=== PATIENT | female | born 1970 | race American Indian/Alaskan Native ===

== ENCOUNTER 2018-05-02 10:19 | Outpatient (CLI) | payer BC ==
--- NOTE | 2018-05-02 13:54 | Mammography Report ---
Bilateral mammogram: Compared to 12/06/13. CAD study utilized. Findings: Heterogeneous breast parenchyma bilaterally. Focal lobulated asymmetry is noted at outer anterior left breast. Adjacent focal 3 mm density is noted. No microcalcifications. Normal axilla. Impression: Focal asymmetry outer anterior left breast. Recommend spot compression and if necessary sonographic examination. BI-RADS CATEGORY: 0 = Needs additional imaging evaluation ACR BI-RADS MAMMOGRAPHIC CODES: 0 = Needs additional imaging evaluation; 1 = Negative; 2 = Benign; 3 = Probably benign; 4 = Suspicious; 5 = Malignant; 6 = Known biopsy-proven malignancy COMMENT: 1. Dense breast tissue, i.e., adenosis, fibrocystic changes, etc., may obscure an underlying neoplasm. 2. Approximately 10% of cancers are not detected with mammography. 3. A negative mammography report should not delay biopsy if a clinically suspicious mass is present. COMMENT: Patient follow-up letters are generated in [employer].
== END 2018-05-02 10:20 | disposition home or self-care (01) ==
LOC: MAMMO 10:19
PROVIDERS: ATTEND Internal Medicine
DX: Z12.31 Encounter for screening mammogram for malignant neoplasm of breast (principal)
CPT/HCPCS: 77067

== ENCOUNTER 2018-11-27 09:16 | Outpatient (CLI) | payer BC ==
--- NOTE | 2018-11-27 10:17 | Ultrasound Report ---
Left mammogram and left breast ultrasound: Short-term followup for asymmetry on prior exams. Routine views of the left breast no longer identifies an area of asymmetry in the superior left breast as seen on prior examination. There is a heterogeneously dense fibroglandular pattern which is generally unremarkable. A hypoechoic circumscribed area identified on the prior ultrasound in the 12:00 location is no longer noted. The findings in this region are normal. Impressions: Unremarkable left mammogram and targeted left breast ultrasound. Recommendation: Return to her normal annual mammography. BI-RADS CATEGORY: 1 = Negative ACR BI-RADS MAMMOGRAPHIC CODES: 0 = Needs additional imaging evaluation; 1 = Negative; 2 = Benign; 3 = Probably benign; 4 = Suspicious; 5 = Malignant; 6 = Known biopsy-proven malignancy COMMENT: 1. Dense breast tissue, i.e., adenosis, fibrocystic changes, etc., may obscure an underlying neoplasm. 2. Approximately 10% of cancers are not detected with mammography. 3. A negative mammography report should not delay biopsy if a clinically suspicious mass is present.
== END 2018-11-27 09:17 | disposition home or self-care (01) ==
LOC: MAMMO 09:16
PROVIDERS: ATTEND Internal Medicine
DX: R92.8 Other abnormal and inconclusive findings on diagnostic imaging of breast (principal)

== ENCOUNTER 2020-09-30 11:14 | Outpatient (CLI) | payer BC ==
--- NOTE | 2020-09-30 12:30 | Mammography Report ---
DIGITAL SCREENING MAMMOGRAM WITH CAD, 09/30/2020 CLINICAL INFORMATION / INDICATION: Routine screening TECHNIQUE: Digital bilateral 2D mammography was obtained in the craniocaudal and mediolateral obliqu e projections. This examination was interpreted with the benefit of Computer-Aided Detection analysis . COMPARISON: 11/27/2018 and priors FINDINGS: Breast Density: The breasts are heterogeneously dense, which may obscure small masses. No dominant mass, suspicious calcifications, or architectural distortion in either breast. IMPRESSION: No mammographic evidence of malignancy. Follow up recommendation: Routine yearly BI-RADS Category 1: Negative. A "normal" or negative report should not discourage follow up or biopsy of a clinically significant f inding. A written summary of these findings will be mailed to the patient. The patient will be entered into a mammography reporting system which will generate a reminder letter for the patient's next appointmen t at the appropriate interval. The [employer] recommends yearly mammograms starting at age 40 and continuing as l duarte as a woman is in good health. Breast MRI is recommended for women with an approximate 20-25% or greater lifetime risk of breast cancer, including women with a strong family history of breast or ova gerardo cancer or who have been treated for Hodgkin's disease. Signer Name: Shun Triana MD Signed: 09/30/2020 12:26 PM Workstation Name: [id number]
== END 2020-09-30 11:15 | disposition home or self-care (01) ==
LOC: MAMMO 11:14
PROVIDERS: ATTEND Nurse Practitioner
DX: Z12.31 Encounter for screening mammogram for malignant neoplasm of breast (principal); N64.89 Other specified disorders of breast
CPT/HCPCS: 77067